=== PATIENT | female | born 1985 | race Asian ===

== ENCOUNTER 2018-03-10 22:32 | Emergency (ER) | payer OTHER ==
[2018-03-10 22:47] VITALS: BP 126/62; PULSE 74; TEMP 98.2; BMI 29.9
[2018-03-10] MEDS ORDERED: ACETAMINOPHEN 325 MG TABLET (FP) ONE (23:45)
[2018-03-10 23:58] LABS: BASO % 0.4 % (0-2.0); HEMATOCRIT 39.1 % (32.4-45.2); HEMOGLOBIN 13.6 GM/dL (10.7-15.3); LYMPH % 35.2 % (8-40); MCH 29.7 pg (25.7-33.7); MCHC 34.7 g/dl (32.0-36.0); MEAN CELL VOLUME 85.5 fl (80-96); MEAN PLT VOLUME 8.8 fl (7.5-11.1); MONO % 4.8 % (3.8-10.2); NEUT % 58.6 % (42.8-82.8); PLATELET COUNT 267 K/MM3 (134-434); RBC 4.57 M/mm3 (3.60-5.2); WHITE BLOOD COUNT 10.8 K/mm3 (4.0-10.0)
[2018-03-11 00:01] LABS: URINE APPEARANCE CLEAR; URINE BILIRUBIN NEGATIVE (<2.0 mg/dL); URINE COLOR LTYELLOW; URINE GLUCOSE (UA) NEGATIVE (NEGATIVE); URINE KETONE NEGATIVE (NEGATIVE); URINE LEUK ESTERASE TRACE (NEGATIVE); URINE NITRITE NEGATIVE (NEGATIVE); URINE PROTEIN NEGATIVE (NEGATIVE); URINE UROBILINOGEN NEGATIVE mg/dL (0.2-1.0)
[2018-03-11 00:13] LABS: EPI CELLS RARE /HPF (FEW); URINE BACTERIA RARE /hpf (NONE SEEN); URINE MUCUS RARE
[2018-03-11 00:26] LABS: ALBUMIN 3.9 g/dl (3.4-5.0); ALK PHOS 73 U/L (45-117); ANION GAP 9 (8-16); BILIRUBIN,TOTAL 0.2 mg/dL (0.2-1.0); BLOOD UREA NITROGEN 12 mg/dL (7-18); CALCIUM 9.1 mg/dL (8.5-10.1); CHLORIDE 109 mmol/L (98-107); CO2 26 mmol/L (21-32); CREATININE 0.8 mg/dL (0.55-1.02); GLUCOSE,RANDOM 93 mg/dL (74-106); POTASSIUM 4.4 mmol/L (3.5-5.1); SGOT/AST 19 U/L (15-37); SGPT/ALT 28 U/L (12-78); SODIUM 144 mmol/L (136-145); TOT PROT 7.3 g/dl (6.4-8.2)
--- NOTE | 2018-03-11 01:24 | PDOC ---
History of Present Illness - History of Present Illness Initial Comments: 03/11/18 01:24 The patient is a 32 year old female, with no significant past medical history, who presents to the emergency department with bilateral abdominal pain radiating to her back today. She states she had a positive at home test last week and reports her LMP was in September. She states her menstrual period is irregular at baseline. She denies vaginal bleeding. She denies any other complaints. The patient denies chest pain, shortness of breath, headache and dizziness. The patient denies fever, chills, nausea, vomit, diarrhea and constipation. The patient denies dysuria, frequency, urgency and hematuria. Allergies: NKDA Past surgical history: none reported Social history: denies toxic habits <Cecile Pedro - Last Filed: 03/11/18 01:36> <Antonia Bryant - Last Filed: 03/11/18 02:01> - General Chief Complaint: Vaginal Bleeding Stated Complaint: VAGINAL BLEEDING () Time Seen by Provider: 03/10/18 23:17 Past History <Cecile Pedro - Last Filed: 03/11/18 01:36> - Past Medical History Asthma: No CVA: No COPD: No DVT: No Diabetes: No Dialysis: No - Surgical History Appendectomy: No Cholecystectomy: No Gastric Stapling: No - Suicide/Smoking/Psychosocial Hx Smoking History: Never smoked Have you smoked in the past 12 months: No Information on smoking cessation initiated: No Hx Alcohol Use: Yes (socially) Drug/Substance Use Hx: No Substance Use Type: Alcohol <Antonia Bryant - Last Filed: 03/11/18 02:01> - Past Medical History Allergies/Adverse Reactions: Allergies Allergy/AdvReac Type Severity Reaction Status Date / Time No Known Allergies Allergy Verified 03/10/18 22:35 Home Medications: Ambulatory Orders Cephalexin Monohydrate [Keflex -] 500 mg PO BID #10 capsule 03/11/18 Review of Systems - Review of Systems Able to Perform ROS?: Yes Comments:: 03/11/18 01:25 CONSTITUTIONAL: Absent: fever, chills, diaphoresis, generalized weakness, malaise, loss of appetite HEENT: Absent: rhinorrhea, nasal congestion, throat pain, throat swelling, difficulty swallowing, mouth swelling, ear pain, eye pain, visual Changes CARDIOVASCULAR: Absent: chest pain, syncope, palpitations, irregular heart rate, lightheadedness , peripheral edema RESPIRATORY: Absent: cough, shortness of breath, dyspnea with exertion, orthopnea, wheezing, stridor, hemoptysis GASTROINTESTINAL: (+) abdominal pain, Absent: abdominal distension, nausea, vomiting, diarrhea, constipation, melena, hematochezia GENITOURINARY: Absent: dysuria, frequency, urgency, hesitancy, hematuria, flank pain, genital pain MUSCULOSKELETAL: Absent: myalgia, arthralgia, joint swelling SKIN: Absent: rash, itching, pallor HEMATOLOGIC/IMMUNOLOGIC: Absent: easy bleeding, easy bruising, lymphadenopathy, frequent infections ENDOCRINE: Absent: unexplained weight gain, unexplained weight loss, heat intolerance, cold intolerance NEUROLOGIC: Absent: headache, focal weakness or paresthesias, dizziness, unsteady gait, seizure, mental status changes, bladder or bowel incontinence PSYCHIATRIC: Absent: anxiety, depression, suicidal or homicidal ideation, hallucinations. <Cecile Pedro - Last Filed: 03/11/18 01:36> *Physical Exam - Vital Signs Last Vital Signs Temp Pulse Resp BP Pulse Ox 98.2 F 74 20 126/62 100 03/10/18 22:44 03/10/18 22:44 03/10/18 22:44 03/10/18 22:44 03/10/18 22:44 - Physical Exam Comments: 03/11/18 01:25 GENERAL: Well developed, well nourished. Awake and alert. No acute distress. HEENT: Normocephalic, atraumatic. PERRLA, EOMI. No conjunctival pallor. Sclera are non- icteric. Moist mucous membranes. Oropharynx is clear. NECK: Supple. Full ROM. No JVD. Carotid pulses 2+ and symmetric, without bruits. No thyromegaly. No lymphadenopathy. CARDIOVASCULAR: Regular rate and rhythm. No murmurs, rubs, or gallops. Distal pulses are 2+ and symmetric. PULMONARY: No evidence of respiratory distress. Lungs clear to auscultation bilaterally. No wheezing, rales or rhonchi. ABDOMINAL: Soft. Non-tender. Non-distended. No rebound or guarding. No organomegaly. Normoactive bowel sounds. MUSCULOSKELETAL Normal range of motion at all joints. No bony deformities or tenderness. No CVA tenderness. EXTREMITIES: No cyanosis. No clubbing. No edema. No calf tenderness. SKIN: Warm and dry. Normal capillary refill. No rashes. No jaundice. NEUROLOGICAL: Alert, awake, appropriate. Cranial nerves 2-12 intact. Normoreflexic in the upper and lower extremities. Normal speech. Toes are down-going bilaterally. Gait is normal without ataxia. PSYCHIATRIC: Cooperative. Good eye contact. Appropriate mood and affect. <Cecile Pedro - Last Filed: 03/11/18 01:36> - Vital Signs Last Vital Signs Temp Pulse Resp BP Pulse Ox 98.2 F 74 20 126/62 100 03/10/18 22:44 03/10/18 22:44 03/10/18 22:44 03/10/18 22:44 03/10/18 22:44 <Antonia Bryant - Last Filed: 03/11/18 02:01> ED Treatment Course - LABORATORY CBC & Chemistry Diagram: 03/10/18 23:50 03/10/18 23:50 - ADDITIONAL ORDERS Additional order review: Laboratory Results 03/10/18 03/10/18 03/10/18 23:50 23:50 23:50 Sodium 144 Potassium 4.4 Chloride 109 H Carbon Dioxide 26 Anion Gap 9 BUN 12 Creatinine 0.8 Creat Clearance w eGFR > 60 Random Glucose 93 Calcium 9.1 Total Bilirubin 0.2 AST 19 ALT 28 Alkaline Phosphatase 73 Total Protein 7.3 Albumin 3.9 Beta HCG, Quant Urine Color Ltyellow Urine Appearance Clear Urine pH 6.0 Ur Specific [place] 1.019 Urine Protein Negative Urine Glucose (UA) Negative Urine Ketones Negative Urine Blood 3+ H Urine Nitrite Negative Urine Bilirubin Negative Urine Urobilinogen Negative Ur Leukocyte Esterase Trace Urine WBC (Auto) 23 Urine RBC (Auto) 3 Ur Epithelial Cells Rare Urine Bacteria Rare Urine Mucus Rare Urine HCG, Qual Positive 03/10/18 23:50 Sodium Potassium Chloride Carbon Dioxide Anion Gap BUN Creatinine Creat Clearance w eGFR Random Glucose Calcium Total Bilirubin AST ALT Alkaline Phosphatase Total Protein Albumin Beta HCG, Quant 147.4 Urine Color Urine Appearance Urine pH Ur Specific [place] Urine Protein Urine Glucose (UA) Urine Ketones Urine Blood Urine Nitrite Urine Bilirubin Urine Urobilinogen Ur Leukocyte Esterase Urine WBC (Auto) Urine RBC (Auto) Ur Epithelial Cells Urine Bacteria Urine Mucus Urine HCG, Qual 03/10/18 23:50 RBC 4.57 MCV 85.5 MCHC 34.7 RDW 13.0 MPV 8.8 Neutrophils % 58.6 Lymphocytes % 35.2 Monocytes % 4.8 Eosinophils % 1.0 Basophils % 0.4 - RADIOLOGY Radiograph Interpretation: EXAM: Ultrasound first trimester and pelvic duplex HISTORY: Pelvic pain and bleeding COMPARISON: None. FINDINGS: Ultrasound :Uterus is anteverted and measures 8.4centimeters in length. There is no IUP. Endometrium is thickened to 16 mm. The right ovary measures 3.0centimeters in length and appears normal. The left ovary measures 2.5centimeters in length and appears normal. There is no significant free fluid. Pelvic duplex: There is normal arterial flow in both ovaries. IMPRESSION: Thickened endometrium without IUP Differential diagnoses includes early normal , miscarriage and ectopic . Recommend followup sonography and correlation with hCG levels. Louis Johnson MD 03/11/2018 00:30 EST <Cecile Pedro - Last Filed: 03/11/18 01:36> - LABORATORY CBC & Chemistry Diagram: 03/10/18 23:50 03/10/18 23:50 - ADDITIONAL ORDERS Additional order review: Laboratory Results 03/10/18 03/10/18 03/10/18 23:50 23:50 23:50 Sodium 144 Potassium 4.4 Chloride 109 H Carbon Dioxide 26 Anion Gap 9 BUN 12 Creatinine 0.8 Creat Clearance w eGFR > 60 Random Glucose 93 Calcium 9.1 Total Bilirubin 0.2 AST 19 ALT 28 Alkaline Phosphatase 73 Total Protein 7.3 Albumin 3.9 Beta HCG, Quant Urine Color Ltyellow Urine Appearance Clear Urine pH 6.0 Ur Specific [place] 1.019 Urine Protein Negative Urine Glucose (UA) Negative Urine Ketones Negative Urine Blood 3+ H Urine Nitrite Negative Urine Bilirubin Negative Urine Urobilinogen Negative Ur Leukocyte Esterase Trace Urine WBC (Auto) 23 Urine RBC (Auto) 3 Ur Epithelial Cells Rare Urine Bacteria Rare Urine Mucus Rare Urine HCG, Qual Positive 03/10/18 23:50 Sodium Potassium Chloride Carbon Dioxide Anion Gap BUN Creatinine Creat Clearance w eGFR Random Glucose Calcium Total Bilirubin AST ALT Alkaline Phosphatase Total Protein Albumin Beta HCG, Quant 147.4 Urine Color Urine Appearance Urine pH Ur Specific [place] Urine Protein Urine Glucose (UA) Urine Ketones Urine Blood Urine Nitrite Urine Bilirubin Urine Urobilinogen Ur Leukocyte Esterase Urine WBC (Auto) Urine RBC (Auto) Ur Epithelial Cells Urine Bacteria Urine Mucus Urine HCG, Qual 03/10/18 23:50 RBC 4.57 MCV 85.5 MCHC 34.7 RDW 13.0 MPV 8.8 Neutrophils % 58.6 Lymphocytes % 35.2 Monocytes % 4.8 Eosinophils % 1.0 Basophils % 0.4 - RADIOLOGY Radiology Studies Ordered: Category Date Time Status PELVIC / BLADDER US [US] Stat Ultrasound 03/11/18 00:02 Taken <Antonia Bryant - Last Filed: 03/11/18 02:01> *DC/Admit/Observation/Transfer - Attestations Scribe Attestion: 03/11/18 01:39 Documentation prepared by Cecile Pedro, acting as medical accountant for Antonia Bryant MD <Cecile Pedro - Last Filed: 03/11/18 01:36> <Antonia Bryant - Last Filed: 03/11/18 02:01> Diagnosis at time of Disposition: Threatened , UTI (urinary tract infection) - Discharge Dispostion Disposition: HOME Condition at time of disposition: Good - Prescriptions Prescriptions: Cephalexin Monohydrate [Keflex -] 500 mg PO BID #10 capsule - Referrals Referrals: Kwame Coleman MD [Primary Care Provider] - Carlito Siegel MD [Staff Physician] - - Patient Instructions Printed Discharge Instructions: DI for Threatened , DI for Vaginal Bleeding During , DI for Urinary Tract Infection (UTI) Additional Instructions: You should have a repeat BHCG and ultrasound in 48 hours Please see your policy 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
== END 2018-03-11 02:15 | disposition home or self-care (01) ==
LOC: JER 22:32
DX: O26.891 Other specified pregnancy related conditions, first trimester (principal); Z3A.01 Less than 8 weeks gestation of pregnancy; O20.0 Threatened abortion; N39.0 Urinary tract infection, site not specified
CPT/HCPCS: 36415; 76856-TC; 80053; 81003; 81015; 84702; 84703; 85025; 86850; 86900; 86901; 99281-25

== ENCOUNTER 2020-06-20 10:25 | Inpatient (IN) | payer OTHER ==
--- OUTSIDE RECORDS SUMMARY | 2020-06-20 10:43 | XMS ---
:1985 Author Organization [facility] Support Name Relationship Address Phone AVERY Unavailable [address] [place] [address] STACIE RDZ SISTER [address] [place] [address] CANDACE YOUSSEF [address] [phone] [place] [address] Re-disclosure Warning The records that you are about to access may contain information from federally- assisted alcohol or drug abuse programs. If such information is present, then the following federally mandated warning applies: This information has been disclosed to you from records protected by federal confidentiality rules (42 CFR part 2). The federal rules prohibit you from making any further disclosure of this information unless further disclosure is expressly permitted by the written consent of the person to whom it pertains or as otherwise permitted by 42 CFR part 2. A general authorization for the release of medical or other information is NOT sufficient for this purpose. The Federal rules restrict any use of the information to criminally investigate or prosecute any alcohol or drug abuse patient.The records that you are about to access may contain highly sensitive health information, the redisclosure of which is protected by Article 27-F of the [facility] Public Health law. If you continue you may haveaccess to information: Regarding HIV / AIDS; Provided by facilities licensed or operated by the [facility] Office of Mental Health; or Provided by the [facility] Office for People With Developmental Disabilities. If such information is present, then the following [facility] mandated warning applies: This information has been disclosed to you from confidential records which are protected by state law. State law prohibits you from making any further disclosure of this information without the specific written consent of the person to whom it pertains, or as otherwise permitted by law. Any unauthorized further disclosure in violation of state law may result in a fine or mcfp sentence or both. A general authorization for the release of medical or other information is NOT sufficient authorization for further disclosure. Insurance Providers Payer name Policy type Policy ID Covered Covered republican's Policy P tabitha / Coverage republican ID relationship to Romero Inf ormation type romero CIGNA [id number] SP [id number] HEALTHCARE HMO CIGNA [id number] SP [id number] HEALTHCARE HMO Results ID Date Data Source [id number] 06/14/2020 12:00:00 AM EST [facility] Name Value Range Interpretation Code Description Data Eula rce(s) Supporting Document(s ) nCoV [facility] RNA XXX JAMIL+probe- Imp This lab was ordered by [facility] and reported by [employer]. ID Date Data Source [id number] 06/07/2020 12:00:00 AM EDT [facility] Name Value Range Interpretation Code Description Data Eula rce(s) Supporting Document(s ) nCoV [place] RNA XXX JAMIL+probe- Imp This lab was ordered by [facility] and reported by [employer] ID Date Data Source [id number] 05/30/2020 12:00:00 AM EDT [facility] Name Value Range Interpretation Code Description Data Eula rce(s) Supporting Document(s ) nCoV [facility] RNA XXX JAMIL+probe- Imp This lab was ordered by [facility] and reported by [employer] ID Date Data Source [id number] 05/23/2020 12:00:00 AM EDT [facility] Name Value Range Interpretation Code Description Data Eula rce(s) Supporting Document(s ) nCoV [place] RNA XXX JAMIL+probe- Imp [facility] lab [facility] and reported by [employer] ID Date Data Source [id number] 05/16/2020 12:00:00 AM EDT [facility] Name Value Range Interpretation Code Description Data Eula rce(s) Supporting Document(s ) nCoV [place] RNA XXX JAMIL+probe- Imp This lab was [facility] and reported by [employer] ID Date Data Source [id number] 05/09/2020 12:00:00 AM EDT [facility] Name Value Range Interpretation Code Description Data Eula rce(s) Supporting Document(s ) nCoV [facility] RNA XXX JAMIL+probe- Imp This lab was ordered by [facility] and reported by [employer] ID Date Data Source [id number] 05/03/2020 12:00:00 AM EDT [facility] Name Value Range Interpretation Code Description Data Eula rce(s) Supporting Document(s ) nCoV [facility] RNA XXX JAMIL+probe- Imp This lab was ordered by [facility] and reported by [employer] ID Date Data Source [id number] 04/26/2020 12:00:00 AM EDT [facility] Name Value Range Interpretation Code Description Data Eula rce(s) Supporting Document(s ) nCoV [facility] RNA XXX JAMIL+probe- Imp This lab was ordered by [facility] and reported by [employer] ID Date Data Source [id number] 04/19/2020 12:00:00 AM EDT [facility] Name Value Range Interpretation Code Description Data Eula rce(s) Supporting Document(s ) nCoV [facility] RNA XXX JAMIL+probe- Imp This lab was ordered by [facility] and reported by [employer] ID Date Data Source [id number] 04/11/2020 12:00:00 AM EDT [facility] Name Value Range Interpretation Code Description Data Eula rce(s) Supporting Document(s ) nCoV [facility] RNA XXX JAMIL+probe- Imp This lab was ordered by [facility] and reported by [employer] ID Date Data Source [id number] 04/05/2020 12:00:00 AM EDT [facility] Name Value Range Interpretation Code Description Data Eula rce(s) Supporting Document(s ) nCoV [facility] RNA XXX JAMIL+probe- Imp This lab was ordered by [facility] and reported by [employer] ID Date Data Source [id number] 03/29/2020 12:00:00 AM EDT [facility] Name Value Range Interpretation Code Description Data Eula rce(s) Supporting Document(s ) nCoV [facility] RNA XXX JAMIL+probe- Imp This lab was ordered by [facility] and reported by [employer] ID Date Data Source [id number] 03/21/2020 12:00:00 AM EDT [facility] Name Value Range Interpretation Code Description Data Eula rce(s) Supporting Document(s ) nCoV [facility] RNA XXX JAMIL+probe- Imp This lab was ordered by [facility] and reported by [employer] ID Date Data Source [id number] 03/14/2020 12:00:00 AM EDT [facility] Name Value Range Interpretation Code Description Data Eula rce(s) Supporting Document(s ) nCoV [facility] RNA XXX JAMIL+probe- Imp This lab was ordered by [facility] and reported by [employer] ID Date Data Source [id number] 03/07/2020 12:00:00 AM EDT [facility] Name Value Range Interpretation Code Description Data Eula rce(s) Supporting Document(s ) nCoV [facility] RNA XXX JAMIL+probe- Imp This lab was ordered by [facility] and reported by [employer] ID Date Data Source [id number] 02/29/2020 12:00:00 AM EDT [facility] Name Value Range Interpretation Code Description Data Eula rce(s) Supporting Document(s ) nCoV [facility] RNA XXX JAMIL+probe- Imp This lab was ordered by [facility] and reported by [employer] ID Date Data Source [id number] 02/22/2020 12:00:00 AM EDT [facility] Name Value Range Interpretation Code Description Data Eula rce(s) Supporting Document(s ) nCoV [facility] RNA XXX JAMIL+probe- Imp This lab was ordered by [facility] and reported by [employer] ID Date Data Source [id number] 02/15/2020 12:00:00 AM EDT [facility] Name Value Range Interpretation Code Description Data Eula rce(s) Supporting Document(s ) 2019-nCoV [facility] RNA XXX JAMIL+probe- Imp This lab was ordered by [facility] and reported by [employer]. ID Date Data Source [id number] 02/03/2020 12:00:00 AM EDT [facility] Name Value Range Interpretation Code Description Data Eula rce(s) Supporting Document(s ) COV2 [facility] This lab was ordered by JA alfonso nd reported by [facility]. Procedure
[2020-06-20 11:01] VITALS: BMI 35.1
--- NOTE | 2020-06-20 11:40 | HP ---
Past Medical History - Primary Care Physician PCP:: Tye Birch - Admission Chief Complaint: 34yo P1 with at EGA 38wk admitted with PROM since 6:30am History of Present Illness: Uncomplicated PNC PROM 5 hrs ago, not in labor History Source: Patient, Medical Record Limitations to Obtaining History: No Limitations - Past Medical History CONTRACT ANALYST: No: Alzheimer's, CVA, Dementia, Migraine, Multiple Sclerosis, Peripheral Neuropathy, Parkinson's, Seizure, Syncope, TIA, Vertigo, Other Cardiovascular: No: AFIB, Aneurysm, Aortic Insufficiency, Aortic Stenosis, CAD, CHF, Deep Vein Thrombosis, HTN, Hyperlipdemia, ID, Mitral Insufficiency, Mitral Stenosis, Murmur, Pulmonary Hypertension, Other Pulmonary: No: Asthma, Bronchitis, Cancer, COPD, O2 Dependent, Pneumonia, Previously Intubated, Pulmonary Embolus, Pulmonary Fibrosis, Sleep Apnea, Other Gastrointestinal: No: Ascites, Cancer, Constipation, Crohn's Disease, Diverticulitis, Diverticulosis, Esophageal Varices, Gastritis, GERD, GI Bleed, Hemorrhoids, Hiatal Hernia, Inflamatory Bowel Disease, Irritable Bowel Disease, Pancreatitis, Peptic Ulcer Disease, Ulcerative Colitis, Other Hepatobiliary: No: Cirrhosis, Cholelithiasis, Cholecystitis, Choledocholithiasis, Hepatitis A, Hepatitis B, Hepatitis C, Other Renal/: No: Renal Failure, Renal Inusuff, BPH, Cancer, Hematuria, Hemodialysis, Neurogenic Bladder, Renal Calculi, UTI, Other Reproductive: No: Ectopic , Endometriosis, Fibroids, PID, Polycystic Ovary Syndrome, Postmenopausal, Other ...: 3 ...Para: 1 ( 5lb 5 oz) ...Term: 1 ...: 0 ...Spon : 1 ...Induced : 0 ...Living Children: 1 ...Multiple Gestation: 0 ...LMP: 09/22/19 ... Weeks Gestation by Dates: 38.0 ...EDC by Dates: 06/20/20 ...EDC by Sono: 07/04/20 Heme/Onc: No: Anemia, B12 Deficiency, Bleeding Disorder, Cancer, Current Chemotherapy, Current Radiation Therapy, Hemochromatosis, Hypercoaguable State, Myeloproliferative Synd, Sickle Cell Disease, Sickle Cell Trait, Thrombocytopenia, Other Infectious Disease: No: AIDS, C-Diff, Herpes Zoster, HIV, MRSA, STD's, Tuberculosis, VREF, Other Psych: No: Addictions, Anxiety, Bipolar, Depression, Panic, Psychosis, Schizophrenia, Other Musculoskeletal: No: Bursitis, Chronic low back pain, Hemiparesis, Hemiplegia, Osteoarthritis, Paraplegia, Other Rheumatology: No: Fibromyalgia, Gout, Lupus, Rheumatoid Arthritis, Sarcoidosis, Vasculitis, Other ENT: No: Allergic Rhinitis, Sinusitis, Other Endocrine: No: Colver's Disease, [place]'s Disease, Diabetes Insipidus, Diabetes Mellitus, Hyperparathyroidism, Hyperthyroidism, Hypothyroidism, Osteopenia, SIADH, Other Dermatology: No: Basal Cell, Cellulitis, Eczema, Melanoma, Psoriasis, Squamous Cell, Other - Past Surgical History Past Surgical History: Yes: None Hx Myomectomy: No Hx Transabdominal Cerclage: No - Smoking History Smoking history: Never smoked Have you smoked in the past 12 months: No - Alcohol/Substance Use Hx Alcohol Use: No History of Substance Use: reports: None - Social History Usual Living Arrangement: Yes: With Spouse, With Child Do you think of yourself as: Straight/Heterosexual ADL: Independent 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 [employer] History of Recent Travel: No Home Medications - Allergies Allergies/Adverse Reactions: Allergies Allergy/AdvReac Type Severity Reaction Status Date / Time No Known Allergies Allergy Verified 06/20/20 10:48 - Home Medications Home Medications: Ambulatory Orders Doxylamine Succinate [Unisom] 25 mg PO HS 06/20/20 Pnv No.95/Ferrous Fum/Folic AC [ Caplet] 1 tab PO AC 06/20/20 Family Medical History Family History: Unremarkable Review of Systems - Review of Systems Constitutional: reports: No Symptoms Eyes: reports: No Symptoms HENT: reports: No Symptoms Neck: reports: No Symptoms Cardiovascular: reports: No Symptoms Respiratory: reports: No Symptoms Gastrointestinal: reports: No Symptoms Genitourinary: reports: No Symptoms Breasts: reports: No Symptoms Reported Musculoskeletal: reports: No Symptoms Integumentary: reports: No Symptoms Neurological: reports: No Symptoms Endocrine: reports: No Symptoms Hematology/Lymphatic: reports: No Symptoms Psychiatric: reports: No Symptoms Pain Intensity: 0 Physical Exam - Maternity Constitutional: Yes: Well Nourished, No Distress, Calm Eyes: Yes: WNL, Conjunctiva Clear, EOM Intact HENT: Yes: WNL, Atraumatic, Normocephalic Neck: Yes: WNL, Supple, Trachea Midline Cardiovascular: Yes: WNL, Regular Rate and Rhythm Lungs: Clear to auscultation, Normal air movement Breast(s): Yes: WNL - Abdominal Exam/OB Fundal Height: 38 Number of Fetuses: Single Presentation: Vertex Contractions: Yes Regularity: Irritability Intensity: Unaware Monitor Mode: External Heart Rate (range): 130 Heart Rate Location: Midline Category: I - Vaginal Exam/OB Vaginal Bleeding: No Speculum Exam: No Dilatation (cm): 1 Effacement (%): 20 Amniotic Membrane Status: Leaking (clear) Nitrazine Test: Positive Amniotic Fluid: Yes: Clear Presentation: Vertex/Position Station: -4 (Gynecoid pelvimetry, EFW 3100 gm by Tony maneuvers.) - Physical Exam Musculoskeletal: Yes: WNL Extremities: Yes: WNL Edema: No Integumentary: Yes: WNL Deep Tendon Reflex Grade: Normal +2 ...Motor Strength: WNL Psychiatric: Yes: WNL, Alert, Oriented Hemorrhage Risk Assessment - Risk Factors Medium Risk Factors: Yes: None High Risk Factors: Yes: None Risk Score: 1 Risk Level: Medium Risk Imaging - Results Ultrasound: Report Reviewed Assessment/Plan 34yo P1 with at EGA 38wk admitted with PROM since 6:30am. Pt is not in labor. Fetus with Category I tracing. Adequate gynecoid pelvimetry on exam. We had long discussion re: risks, benefits, and alternatives of labor induction. I explained the options of expectant management awaiting spontaneous labor, induction of labor, and elective section. The risks of uterine tachysystole, distress, uterine rupture, need for emergency C/S, hemorrhage, infection, scarring, etc. were discussed. We also discussed the risks of meconium aspiration, shoulder dystocia, and anesthesia options. The pt requested to proceed with induction. We discussed the alternative methods of induction with Cervidil, Cytotec, Folley ballon, and pitocin. The pt prefers Cervidil followed by pitocin, if needed.
[2020-06-20 11:50] LABS: BASO % 0.2 % (0-2.0); HEMATOCRIT 37.2 % (32.4-45.2); HEMOGLOBIN 12.6 GM/dL (10.7-15.3); LYMPH % 24.5 % (8-40); MCH 30.2 pg (25.7-33.7); MCHC 33.8 g/dl (32.0-36.0); MEAN CELL VOLUME 89.4 fl (80-96); MEAN PLT VOLUME 9.3 fl (7.5-11.1); MONO % 5.4 % (3.8-10.2); NEUT % 68.9 % (42.8-82.8); PLATELET COUNT 180 K/MM3 (134-434); RBC 4.16 M/mm3 (3.60-5.2); RDW 13.6 % (11.6-15.6); WHITE BLOOD COUNT 8.7 K/mm3 (4.0-10.0)
[2020-06-20 11:58] LABS: INR 0.98 (0.83-1.09); PROTHROMBIN TIME (PATIENT) 12.1 SEC (9.7-13.0)
[2020-06-20 12:00] LABS: ACTIVATED PTT 27.4 SECONDS (25.2-36.5)
[2020-06-20] MEDS: DEXTROSE 5%-LACTATED RINGERS 1,000 ML IV SCH (12:00)
[2020-06-20 12:17] LABS: POTASSIUM 4.1 mmol/L (3.5-5.1)
[2020-06-20 12:18] LABS: CALCIUM 8.8 mg/dL (8.5-10.1)
[2020-06-20 12:19] LABS: BLOOD UREA NITROGEN 9.3 mg/dL (7-18)
[2020-06-20 12:22] LABS: CREATININE 0.7 mg/dL (0.55-1.3)
[2020-06-20] MEDS: OXYTOCIN 30 UNITS in 0.9% NS 30 UNIT/500 ML INFUS.BAG IVPB SCH (13:00)
[2020-06-20] MEDS ORDERED: OXYTOCIN 30 UNITS in 0.9% NS 30 UNIT/500 ML INFUS.BAG IVPB ONE (13:01)
--- NOTE | 2020-06-20 13:01 | PN ---
Ante-Partal Exam - Subjective Subjective: No complaints, no contractions. Vital Signs: Vital Signs Temperature 97.9 F 06/20/20 12:00 Pulse Rate 81 06/20/20 12:00 Respiratory Rate 20 06/20/20 12:00 Blood Pressure 112/67 06/20/20 12:00 O2 Sat by Pulse Oximetry (%) Bleeding: No Headache: No Visual changes: No Right upper quadrant pain: No Pain (scale 1-10): 0 - Contractions Contractions: No Intensity: Unaware Monitor Mode: External - Exam during Labor Heart Rate: 140 Variability: Moderate Heart Rate Location: Midline Category: I Monitor Accelerations: Present Monitor Decelerations: None Exam: Vaginal Dilatation (cm): 1 Effacement (%): 50 Amniotic Membrane Status: Leaking Nitrazine Test: Positive Amniotic Fluid: Clear Presentation: Vertex Station: -3 (Gynecoid pelvimetry) - Intrapartum Hemorrhage Risk Medium Risk Factors: None High Risk Factors: None Risk Score: 0 Risk Level: Low Risk - Assessment/Plan Assessment/Plan: P1 with PROM, not in labor. Fetus with Category I tracing. Plan to induce labor with pitocin.
--- NOTE | 2020-06-20 16:11 | PN ---
Ante-Partal Exam - Subjective Subjective: Pt is c/o painful contractions. She requested epidural. Vital Signs: Vital Signs Temperature 98.2 F 06/20/20 13:00 Pulse Rate 76 06/20/20 13:00 Respiratory Rate 20 06/20/20 13:00 Blood Pressure 113/66 06/20/20 13:00 O2 Sat by Pulse Oximetry (%) Bleeding: No Headache: No Visual changes: No Right upper quadrant pain: No Pain (scale 1-10): 8 - Contractions Contractions: Yes Regularity: Irregular Intensity: Moderate Monitor Mode: External - Exam during Labor Heart Rate: 130 Variability: Moderate Heart Rate Location: Midline Category: I Monitor Accelerations: Present Monitor Decelerations: None Exam: Vaginal Dilatation (cm): 2 Effacement (%): 80 Amniotic Membrane Status: Leaking Amniotic Fluid: Clear Presentation: Vertex Station: 0 - Intrapartum Hemorrhage Risk Medium Risk Factors: None High Risk Factors: None Risk Score: 0 Risk Level: Low Risk - Assessment/Plan Assessment/Plan: Progressing in latent labor. Fetus with category I tracing. Anesthesia contacted for epidural consult
[2020-06-20] MEDS ORDERED: NALOXONE HCL 0.4 MG/ML VIAL IVPUSH PRN (16:17)
[2020-06-20] MEDS ORDERED: LIDO 2%/EPI 1:200000 PRESRVFRE (20 ML SDVIAL) ONE (16:19)
[2020-06-20] MEDS ORDERED: FENTANYL/BUPIVACAINE/NS/PF - PCEA - 50 ML DISP.SYRIN EP ONE ×2 (16:24→20:24)
[2020-06-20] MEDS: FENTANYL/BUPIVACAINE/NS/PF - PCEA - 50 ML DISP.SYRIN EP SCH (16:30)
--- NOTE | 2020-06-20 18:33 | PN ---
Ante-Partal Exam - Subjective Subjective: No complaints Vital Signs: Vital Signs Temperature 98.0 F 06/20/20 18:00 Pulse Rate 69 06/20/20 18:00 Respiratory Rate 20 06/20/20 18:00 Blood Pressure 122/74 06/20/20 18:00 O2 Sat by Pulse Oximetry (%) 100 06/20/20 18:00 Bleeding: No Headache: No Visual changes: No Right upper quadrant pain: No Pain (scale 1-10): 2 - Contractions Contractions: Yes Regularity: Regular Intensity: Unaware Monitor Mode: External - Exam during Labor Heart Rate: 145 Variability: Moderate Heart Rate Location: Midline Category: II Monitor Accelerations: Present Monitor Decelerations: Variable Exam: Vaginal Dilatation (cm): 4 Effacement (%): 90 Amniotic Membrane Status: Leaking Nitrazine Test: Positive Amniotic Fluid: Clear Presentation: Vertex Station: 0 - Intrapartum Hemorrhage Risk Medium Risk Factors: None High Risk Factors: None Risk Score: 0 Risk Level: Low Risk - Assessment/Plan Assessment/Plan: Pt had several recurrent variable decels. Pitocin was stopped, position changed, and oxygen given via mask. The tracing became Category I again. The patient was offered amnio-infusion and to try starting pitocin again. Risks, benefits, alternatives of pitocin were discussed. Pt prefers to continue labor. She prefers a trial of pitocin again and will consider amnio-infusion later.
--- NOTE | 2020-06-20 19:28 | PN ---
Ante-Partal Exam - Subjective Subjective: Pt had several variable decels again. IUPC was placed for amnio-infsion and to monitor ctx's better. Vital Signs: Vital Signs Temperature 98.0 F 06/20/20 18:00 Pulse Rate 80 06/20/20 18:45 Respiratory Rate 20 06/20/20 18:45 Blood Pressure 112/66 06/20/20 18:45 O2 Sat by Pulse Oximetry (%) 100 06/20/20 18:45 Bleeding: No Headache: No Visual changes: No Right upper quadrant pain: No Pain (scale 1-10): 0 - Contractions Contractions: Yes Regularity: Irregular Intensity: Unaware Monitor Mode: External - Exam during Labor Heart Rate: 145 Variability: Moderate Heart Rate Location: Midline Category: II Monitor Accelerations: Absent Monitor Decelerations: Variable Exam: Vaginal Dilatation (cm): 5 Effacement (%): 90 Amniotic Membrane Status: Leaking Amniotic Fluid: Clear Presentation: Vertex Station: 0 - Intrapartum Hemorrhage Risk Medium Risk Factors: None High Risk Factors: None Risk Score: 0 Risk Level: Low Risk - Assessment/Plan Assessment/Plan: tracing is category II with variable decels but not recurrent. IUPC placed Plan to start Amnio-infusion Continue pitocin for now.
[2020-06-20] MEDS ORDERED: OXYTOCIN 20 UNITS in 0.9% NS 20 UNIT/1,000 ML INFUS.BAG IV ONE (22:04)
[2020-06-20] MEDS ORDERED: LIDOCAINE HCL 1% PRESERVATIVE FREE - 30ML VIAL ONE (22:04)
[2020-06-20] MEDS: OXYTOCIN 20 UNITS in 0.9% NS 20 UNIT/1,000 ML INFUS.BAG IV SCH (22:30)
[2020-06-20] MEDS ORDERED: BENZOCAINE 28 GM HEMORRHOIDAL OINTMENT TP PRN (22:36)
[2020-06-20] MEDS ORDERED: BENZOCAINE 20% 57 GM BOTTLE TP PRN (22:36)
[2020-06-20] MEDS ORDERED: METHYLERGONOVINE MALEATE 0.2 MG/1 ML AMP IM PRN (22:36)
[2020-06-20] MEDS ORDERED: WITCH HAZEL 50% (TUCKS) 40 PAD/JAR PAD TP PRN (22:36)
[2020-06-20] MEDS ORDERED: BISACODYL 10 MG SUPP.RECT RC PRN (22:36)
[2020-06-20 23:12] LABS: CORD BASE EXCESS -9.9 mmol/L (0-2); CORD HCO3 19.1 mmHg (20-29); CORD PCO2 53.5 mmHg (30-78); CORD pH 7.17 (7.14-7.44)
[2020-06-20 23:15] LABS: CORD BASE EXCESS -8.3 mmol/L (0-2); CORD HCO3 18.6 mmHg (20-29); CORD PCO2 43.4 mmHg (30-78); CORD pH 7.251 (7.14-7.44)
[2020-06-20] MEDS ORDERED: IBUPROFEN 600 MG TABLET (FP) PO ONE (23:43)
[2020-06-20] MEDS ORDERED: ACETAMINOPHEN 325 MG TABLET (FP) ONE (23:43)
[2020-06-20] MEDS: ACETAMINOPHEN 325 MG TABLET (FP) PO PRN (23:45)
[2020-06-20] MEDS: IBUPROFEN 600 MG TABLET (FP) PO PRN (23:45)
[2020-06-21] MEDS ORDERED: PCA PUMP NR ONE (00:58)
[2020-06-21] MEDS ORDERED: OXYTOCIN 20 UNITS in 0.9% NS 20 UNIT/1,000 ML INFUS.BAG IV ONE (04:05)
[2020-06-21] MEDS: OXYTOCIN 20 UNITS in 0.9% NS 20 UNIT/1,000 ML INFUS.BAG IV SCH ×2 (04:10→23:19)
[2020-06-21] MEDS ORDERED: IBUPROFEN 600 MG TABLET (FP) PO ONE ×2 (04:52→10:50)
[2020-06-21] MEDS ORDERED: ACETAMINOPHEN 325 MG TABLET (FP) ONE ×2 (04:53→10:50)
[2020-06-21] MEDS: IBUPROFEN 600 MG TABLET (FP) PO PRN ×3 (05:45→19:34)
[2020-06-21 08:50] LABS: POC NITRAZINE POS
[2020-06-21 09:32] LABS: BASO % 0.3 % (0-2.0); EOS % 0.7 % (0-4.5); HEMOGLOBIN 12.3 GM/dL (10.7-15.3); LYMPH % 20.5 % (8-40); MCHC 33.2 g/dl (32.0-36.0); MEAN CELL VOLUME 90.5 fl (80-96); MEAN PLT VOLUME 9.3 fl (7.5-11.1); MONO % 3.1 % (3.8-10.2); NEUT % 75.4 % (42.8-82.8); PLATELET COUNT 159 K/MM3 (134-434); RBC 4.09 M/mm3 (3.60-5.2); RDW 13.7 % (11.6-15.6); WHITE BLOOD COUNT 11.7 K/mm3 (4.0-10.0)
--- NOTE | 2020-06-21 09:37 | DS ---
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 Vital Signs: Vital Signs Temperature 97.6 F 06/21/20 06:00 Pulse Rate 67 06/21/20 06:00 Respiratory Rate 20 06/21/20 06:00 Blood Pressure 123/86 06/21/20 06:00 O2 Sat by Pulse Oximetry (%) 100 06/21/20 00:30 Labs: CBC, BMP 06/20/20 11:30 Delivery - Delivery Type of Anesthesia: Epidural Episiotomy/Laceration: None EBL (cc): 300 Delivery, Single - Stages of Labor Date 1st Stage Initiatied: 06/20/20 Time 1st Stage Initiated: 06:45 Date 2nd Stage Initiated: 06/20/20 Time 2nd Stage Initiated: 22:05 Date of Delivery: 06/20/20 Time of Delivery: 22:24 Time Placenta Delivered: 22:30 - Condition of Combatant Diver Officer/Prisoner Classification Interviewer Present: No Gender: Male Weight: 5 lb 3 oz Position: OP Total Hours ROM (Hrs/Mins): 15hrs.45mins - 1 Minute Total Score: 9 5 Minutes Total Score: 9 - Feeding Plan Initial Plan: Exclusive throughout hospitalization Discharge Summary Reason For Visit: ADMISSION OF LABOR - Instructions - Home Medications Comprehensive Discharge Medication List: Ambulatory Orders Doxylamine Succinate [Unisom] 25 mg PO HS 06/20/20 Pnv No.95/Ferrous Fum/Folic AC [ Caplet] 1 tab PO AC 06/20/20
--- NOTE | 2020-06-21 09:37 | PN ---
Post Progress Note Post Day: 1 Type of Delivery: Vital Signs: Vital Signs Temperature 97.6 F 06/21/20 06:00 Pulse Rate 67 06/21/20 06:00 Respiratory Rate 20 06/21/20 06:00 Blood Pressure 123/86 06/21/20 06:00 O2 Sat by Pulse Oximetry (%) 100 06/21/20 00:30 - Labs Labs: CBC WBC 8.7 K/mm3 (4.0-10.0) 06/20/20 11:30 RBC 4.16 M/mm3 (3.60-5.2) 06/20/20 11:30 Hgb 12.6 GM/dL (10.7-15.3) 06/20/20 11:30 Hct 37.2 % (32.4-45.2) 06/20/20 11:30 MCV 89.4 fl (80-96) 06/20/20 11:30 MCH 30.2 pg (25.7-33.7) 06/20/20 11:30 MCHC 33.8 g/dl (32.0-36.0) 06/20/20 11:30 RDW 13.6 % (11.6-15.6) 06/20/20 11:30 Plt Count 180 K/MM3 (134-434) D 06/20/20 11:30 MPV 9.3 fl (7.5-11.1) 06/20/20 11:30 Absolute Neuts (auto) 6.0 K/mm3 (1.5-8.0) 06/20/20 11:30 Neutrophils % 68.9 % (42.8-82.8) 06/20/20 11:30 Lymphocytes % 24.5 % (8-40) D 06/20/20 11:30 Monocytes % 5.4 % (3.8-10.2) 06/20/20 11:30 Eosinophils % 1.0 % (0-4.5) 06/20/20 11:30 Basophils % 0.2 % (0-2.0) 06/20/20 11:30 Nucleated RBC % 0 % (0-0) 06/20/20 11:30
[2020-06-21] MEDS: PRENATAL VITAMINS W/ FOLIC ACID TABLET (FP) PO SCH (10:50)
[2020-06-21] MEDS: ACETAMINOPHEN 325 MG TABLET (FP) PO PRN ×2 (10:55→19:33)
[2020-06-21] MEDS: FENTANYL/BUPIVACAINE/NS/PF - PCEA - 50 ML DISP.SYRIN EP SCH (19:28)
--- NOTE | 2020-06-21 19:41 | PN ---
Delivery - Delivery Vaginal Delivery: No Problems, Spontaneous Type of Anesthesia: Epidural Episiotomy/Laceration: Vaginal Extension/lac, 1st degree EBL (cc): 300 Delivery, Single - Stages of Labor Date 1st Stage Initiatied: 06/20/20 Time 1st Stage Initiated: 06:45 Date 2nd Stage Initiated: 06/20/20 Time 2nd Stage Initiated: 22:05 Date of Delivery: 06/20/20 Time of Delivery: 22:24 Date Placenta Delivered: 06/20/20 Time Placenta Delivered: 22:30 Placenta: Yes: Spontaneous, Normal Configuration - Condition of Senior Controls Technician/Sales Engineering Manager Present: No Gender: Male Weight: 2.353 kg Position: OP Total Hours ROM (Hrs/Mins): 15hrs.45mins - 1 Minute Total Score: 9 5 Minutes Total Score: 9 - Feeding Plan Initial Plan: Exclusive throughout hospitalization Benefits of Exclusively reinforced: Yes Remarks - Remarks Remarks: w/o complications.
[2020-06-21] MEDS ORDERED: SENNOSIDES/DOCUSATE COMBO (SENNA PLUS) TABLET (UD) PO PRN (22:00)
[2020-06-21 22:37] VITALS: BP 106/61
[2020-06-21] MEDS: DEXTROSE 5%-LACTATED RINGERS 1,000 ML IV SCH (23:18)
[2020-06-21] MEDS: OXYTOCIN 30 UNITS in 0.9% NS 30 UNIT/500 ML INFUS.BAG IVPB SCH (23:19)
[2020-06-22] MEDS: IBUPROFEN 600 MG TABLET (FP) PO PRN (08:00)
[2020-06-22] MEDS: ACETAMINOPHEN 325 MG TABLET (FP) PO PRN (08:01)
[2020-06-22] MEDS: PRENATAL VITAMINS W/ FOLIC ACID TABLET (FP) PO SCH (09:56)
[2020-06-22 10:50] VITALS: PULSE 102; TEMP 98.2
--- NOTE | 2020-06-22 13:01 | PN ---
Post Progress Note - Subjective Subjective: Patient without acute complaints. Reports tolerating oral intake without nausea or vomiting. Ambulating without dizziness. Denies fevers or chills. Pain well controlled with oral pain medication. Passing flatus. Post Day: 2 Type of Delivery: Vital Signs: Vital Signs Temperature 98.2 F 06/22/20 10:00 Pulse Rate 102 H 06/22/20 10:00 Respiratory Rate 18 06/22/20 10:00 Blood Pressure 106/61 06/21/20 22:00 O2 Sat by Pulse Oximetry (%) 100 06/21/20 11:02 Breast Exam: Yes: Soft Uterus: Yes: Fundus Firm Abdomen/GI: Yes: Abdomen soft, Passing flatus, Tolerating PO. No: Abdominal Distention, Tender Activity: Ambulating - Labs Labs: CBC WBC 11.7 K/mm3 (4.0-10.0) H 06/21/20 08:57 RBC 4.09 M/mm3 (3.60-5.2) 06/21/20 08:57 Hgb 12.3 GM/dL (10.7-15.3) 06/21/20 08:57 Hct 37.0 % (32.4-45.2) 06/21/20 08:57 MCV 90.5 fl (80-96) 06/21/20 08:57 MCH 30.0 pg (25.7-33.7) 06/21/20 08:57 MCHC 33.2 g/dl (32.0-36.0) 06/21/20 08:57 RDW 13.7 % (11.6-15.6) 06/21/20 08:57 Plt Count 159 K/MM3 (134-434) 06/21/20 08:57 MPV 9.3 fl (7.5-11.1) 06/21/20 08:57 Absolute Neuts (auto) 8.8 K/mm3 (1.5-8.0) H 06/21/20 08:57 Neutrophils % 75.4 % (42.8-82.8) 06/21/20 08:57 Lymphocytes % 20.5 % (8-40) 06/21/20 08:57 Monocytes % 3.1 % (3.8-10.2) L 06/21/20 08:57 Eosinophils % 0.7 % (0-4.5) 06/21/20 08:57 Basophils % 0.3 % (0-2.0) 06/21/20 08:57 Nucleated RBC % 0 % (0-0) 06/21/20 08:57 Assessment/Plan 34 yo PPD # 2 s/p , afebrile, vital signs stable, doing well 1. Patient stable for discharge home today. 2. Patient encouraged to contact MD for: - Severe pain not controlled by oral pain medication - Fevers or chills - Nausea or vomiting, intolerance of oral intake 3. Patient to follow up in office in 4-6 weeks for visit
== END 2020-06-22 13:15 | disposition home or self-care (01) | DRG 807 ==
LOC: JLDR 10:25 → J3W 06-21 14:37
PROVIDERS: ADMIT Obstetrics & Gynecology; ATTEND Obstetrics & Gynecology
PROC: 10E0XZZ Delivery of Products of Conception, External Approach (ICD-10-PCS; principal; 2020-06-20)
PROC: 10H073Z Insertion of Monitoring Electrode into Products of Conception, Via Natural or Artificial Opening (ICD-10-PCS; 2020-06-20)
PROC: 0W8NXZZ Division of Female Perineum, External Approach (ICD-10-PCS; 2020-06-20)
PROC: 4A1H7CZ Monitoring of Products of Conception, Cardiac Rate, Via Natural or Artificial Opening (ICD-10-PCS; 2020-06-20)
DX: O42.02 Full-term premature rupture of membranes, onset of labor within 24 hours of rupture (principal); Z37.0 Single live birth; O76 Abnormality in fetal heart rate and rhythm complicating labor and delivery; O70.0 First degree perineal laceration during delivery; O32.6XX0 Maternal care for compound presentation, not applicable or unspecified; Z3A.38 38 weeks gestation of pregnancy
CPT/HCPCS: 36415; 36600; 59409; 80048; 82803; 83986-QW; 85025; 85610; 85730; 86780; 86850; 86900; 86901; 87389; C9803; U0003